=== PATIENT | male | born 1965 | race Caucasian/White ===

== ENCOUNTER 2021-10-19 11:49 | Emergency (ER) | payer OTHER, BC ==
[2021-10-19] MEDS ORDERED: Ketorolac 30 MG/ML SDV IM ONE (12:22)
[2021-10-19] MEDS ORDERED: Dexamethasone 10 MG/ML SDV IM STA (12:22)
[2021-10-19] MEDS ORDERED: Diazepam 2 MG Tab PO ONE (12:22)
== END 2021-10-19 13:40 | disposition home or self-care (01) ==
LOC: MW.ED 11:49
DX: M25.552 Pain in left hip (principal); Z91.013 Allergy to seafood; Z90.49 Acquired absence of other specified parts of digestive tract
CPT/HCPCS: 73502; 96372; 99283; A9270; J1100; J1885

== ENCOUNTER 2022-08-24 10:52 | Day surgery (SDC) | payer BC ==
[~2022-08-24 10:52] MED LIST: Lactated Ringers 1,000 ML IV SCH
[2022-08-24] MEDS ORDERED: Propofol 200 MG/20 ML SDV ONE (11:43)
[2022-08-24] MEDS ORDERED: Lidocaine 2% 5 ML SDV ONE (11:43)
== END 2022-08-24 12:43 | disposition home or self-care (01) ==
LOC: MW.SDS 10:52
PROVIDERS: ATTEND Surgery
DX: K29.50 Unspecified chronic gastritis without bleeding (principal); K21.00 Gastro-esophageal reflux disease with esophagitis, without bleeding; K44.9 Diaphragmatic hernia without obstruction or gangrene; K29.80 Duodenitis without bleeding; Z91.013 Allergy to seafood; Z98.890 Other specified postprocedural states
CPT/HCPCS: 43239; J2704; J7120; J3490